=== PATIENT | female | born 1995 ===

== ENCOUNTER 2021-01-28 10:15 | Outpatient (RCR) | payer OTHER, SELFPAY ==
[2021-01-14 13:11] VITALS: BMI 17.3
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
--- NOTE | 2021-01-14 14:15 | PC.ADMIT ---
Patient is a 25 year old binary individual who goes by the name Yovani and uses they/them pronouns. Patient reports recent medication changes specifically the addition of Abilify triggered a hypomanic episode for 3 weeks. Per report patient described the hypomanic episode as having paranoid thoughts needing to check the doors to see if they were locked and fear that their home was burning. Patient reports they no longer have those symptoms however now feels they are way back down . Patient reported increase in anxiety with panic attacks with depression and passive SI. Patient presents with depressed mood and affect. Denied current SI or thoughts to harm self. Patient reports a hx of self harm however stated last time they self harmed was in 2019. Patient reports their appetite is adequate and they are eating well however patient is underweight for their height. Patient gave verbal permission to email them a copy of their safety plan. They have the crisis number if needed. Medications reconciled with patient and patient's pharmacy.
--- NOTE | 2021-01-18 13:51 | HO.PHPPROGNO ---
Subjective Subjective Date of Service: 01/18/21 Reason For Visit: depression Interim History: The patient reported no side effects but not improvement of her mood symptoms. She reported that she was going down from an hypomanic episode. She is going to see her regular prescriber. No safety issues. Medication Compliance: Yes Side effects from medications: No Attending Groups: Yes Review of Systems Review of Systems Yes all other systems are reviewed and are negative Mental Status Exam Mental Status Exam Patient Appearance: Well Grooomed Patient Orientation: Person, Place, Time and Situation Level of Consciousness: Awake and Appropriate Patient Behavior: Appropriate Mood Description: Calm Affect Description: Calm Patient Cognition Impaired: No Ability to Follow Directions: Good Speech Pattern: Clear Memory Description: Intact Hallucinations: None Delusions: Not Present Thought Process: Intact Thought Content: positive for Intact Judgement: Fair Diagnostics Vital Signs (24Hr): Body Mass Index 17.3 Assessment & Plan Assessment & Plan (1) Bipolar 2 disorder: Status: Acute Code(s): F31.81 - Bipolar II disorder Assessment and Plan: The patient tolerated fairly well the initial dose of Trileptal. She agreed to increase it up to 300 mg po bid Certification I certify that partial hospital treatment is medically necessary due to the symptoms and problems resulting from the patient's mental illness and the failure to treat the patient at the partial hospital level of care would likely result in the patient requiring inpatient psychiatric care which could not be prevented at a less intensive level of care. Greater than 50% of the session was spent on counseling and/or coordination of care Discharge Plan Discharge Attending provider: Nav Bazan Medications: New oxcarbazepine 300 mg tablet 300 mg PO BID Qty: 14 RF: 0 Continued guanfacine 1 mg Tablet 0.5 - 1 mg PO TID PRN (Reason: Anxiety) RF: 0 Telehealth Telehealth Location of provider rendering services: practice address Location of patient: address on file Patient Identification confirmed using: Name, : No Telehealth method: video Patient verbally consented to treatment: Yes Patient verbally consented to billing insurance company: Yes Patient informed of any privacy concerns related to visit: No Time spent with patient (mins): 15
--- NOTE | 2021-01-20 14:53 | PC.NURSE ---
I called and spoke to pt. They reported feeling good about work they are doing in [facility] overall, but said it's a bit overstimulating and triggering at times, as they are used to the structure of DBT. We discussed how to cope when feeling triggered in group, including taking a break (and informing the group of this) for a few minutes or voicing feelings and working through them in group. Pt is signed up for a [facility] DBT group, and is in the process of scheduling an orientation. They will discharge from [facility] tentatively on , 01/28.
--- NOTE | 2021-01-28 13:15 | PC.NURSE ---
Reviewed patient's discharge medications with patient. Patient medication education provided. Patient knows what she is taking and what the medication is for. Discharge medication list faxed to patients prescriber.
--- NOTE | 2021-01-28 13:28 | HO.PHPPROGNO ---
Subjective Subjective Date of Service: 01/28/21 Reason For Visit: depression Interim History: The patient has not noticed any changes on her mood, no side effects. She complaints of residual anxiety but no overt manic symptoms. This is the last visit, and she is aware that if the increase of Trileptal has not helped, she could go up to 600 mg po bid that it is the standard dose of Trileptal as a mood stabilzer. NO safety concerns. Medication Compliance: Yes Side effects from medications: No Attending Groups: Yes Review of Systems Review of Systems Yes all other systems are reviewed and are negative Mental Status Exam Mental Status Exam Patient Appearance: Well Grooomed Patient Orientation: Person, Place, Time and Situation Level of Consciousness: Awake and Appropriate Patient Behavior: Appropriate and Cooperative Mood Description: Calm Affect Description: Appropriate Patient Cognition Impaired: No Ability to Follow Directions: Good Speech Pattern: Clear Memory Description: Intact Hallucinations: None Delusions: Not Present Thought Process: Intact and Goal Oriented Thought Content: positive for Intact Judgement: Fair Diagnostics Vital Signs (24Hr): Body Mass Index 17.3 Assessment & Plan Assessment & Plan (1) Bipolar 2 disorder: Status: Acute Code(s): F31.81 - Bipolar II disorder Assessment and Plan: The darrell is a young female with bipolar type 2 that had an adverse reaction on Depakote. She was referred to [facility] to try a differnet mood stabiilzer. So far, she has been tolerating fairly well Trileptal. Plan: Increase Trileptal up to 450 mg po bid. F/U with regular prescriber Certification I certify that partial hospital treatment is medically necessary due to the symptoms and problems resulting from the patient's mental illness and the failure to treat the patient at the partial hospital level of care would likely result in the patient requiring inpatient psychiatric care which could not be prevented at a less intensive level of care. Greater than 50% of the session was spent on counseling and/or coordination of care Discharge Plan Discharge Attending provider: Nav Bazan Medications: New oxcarbazepine [Trileptal] 300 mg tablet 450 mg PO BID Qty: 21 RF: 1 Continued guanfacine 1 mg Tablet 0.5 - 1 mg PO TID PRN (Reason: Anxiety) RF: 0 Telehealth Telehealth Location of provider rendering services: practice address Location of patient: address on file Patient Identification confirmed using: Name, : Yes Telehealth method: video Patient verbally consented to treatment: Yes Patient verbally consented to billing insurance company: Yes Patient informed of any privacy concerns related to visit: No Time spent with patient (mins): 15
--- NOTE | 2021-01-28 14:46 | PC.NURSE ---
I called and left a message for Stew Agustin, pt's therapist at [facility]. I informed her of pt's successful discharge from [facility] today.
== END 2021-01-29 08:33 | disposition home or self-care (01) ==
LOC: HO.PHPA 10:15
PROVIDERS: Visit Provider Psychiatry & Neurology Psychiatry
DX: F31.81 Bipolar II disorder (principal); Z79.899 Other long term (current) drug therapy
CPT/HCPCS: 90791; 90853

== ENCOUNTER 2025-04-23 11:15 | Outpatient (RCR) | payer OTHER, SELFPAY ==
[2025-04-09 09:39] VITALS: BMI 20.9
[2025-04-09 09:40] VITALS: BP 81/61; PULSE 85; TEMP 37.2
--- NOTE | 2025-04-09 15:27 | PC.ADMIT ---
Patient is a 29 year old partnered individual who goes by the name of Yovani and uses they/them pronouns. Patient was referred to [facility] by their prescriber secondary to mood lability. Per Integrative Assessment patient has a recent history of being hospitalized at [facility] on a section 12. At that time patient called their partner expressing SI with a plan. Patient was taken to the hospital for a crisis evaluation and was subsequently hospitalized at [facility] from 03/13-03/18/25. Patient reports stresses at work. Feels they have not returned to their baseline functioning. Patient reports since d/c from the hospital they have been having issues with their insurance not covering Vraylar medication. She reports she recently had a brief manic episode lasting for two days. Patient stated they were able to get and started taking Vraylar medication two days ago. Patient reports they have attended PHP in the past and wanted to come back. Patient identified supports being their fiance Sherrie and Naomy who is Sherrie's mom. Patient lives with both of them. Patient is taking a leave of absence from work to work on their mental health. Patient is alert and oriented x4. They are calm and cooperative. Patient presented with depressed mood and affect. They denied SI, no HI. They were given a copy of their safety plan if needed. Patient reports they are able to reach out to their fiance if needed if feeling unsafe. Patient denied using any type of substance.
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
--- NOTE | 2025-04-22 21:29 | P.PNPSP_ITS ---
Subjective Subjective Date of Service: 04/22/25 Reason For Visit: bipolar,MARY CARMEN,OCD Interim History: Patient seen for follow-up, anticipating discharge at the end of program today.? Doing okay Denies any SI, none in the past couple of weeks...although there's still habitual thoughts of self harm but denies cating on these thoughts. Has a med provider through [facility], is currently on waitlist for a therapist. Reports no acute issues or concerns. Medication compliant, medications well- tolerated. Denies any adverse effects.? Mood is stable.? Denies any hopelessness or SI. Denies thoughts of harming self or others at this time. Denies any aggressive ideation or HI. Denies any par anoia or AH or VH. Sleep, appetite, energy stable. Medication Compliance: Yes Side effects from medications: No Attending Groups: Yes Review of Systems Acute medical concerns: No Mental Status Exam Mental Status Exam Narrative: Alert, oriented, in no acute distress. Calm, cooperative. Mood stable, affect appropriate. Speech normal. Thought process linear, coherent, more goal- directed. Thought content related to stressors, future-oriented, denies any helplessness, hopelessness or SI.? No aggressive ideation or HI. No paranoia or delusional content elicited. No evidence of psychosis. Insight and judgment fair-good. Diagnostics Vital Signs (24Hr): BMI result Body Mass Index 20.9 Assessment & Plan Assessment & Plan (1) Bipolar 2 disorder: Status: Acute Code(s): F31.81 - Bipolar II disorder (2) OCD (obsessive compulsive disorder): Status: Acute Code(s): F42.9 - Obsessive-compulsive disorder, unspecified (3) MARY CARMEN (generalized anxiety disorder): Status: Acute Code(s): F41.1 - Generalized anxiety disorder Plan Discharge from [facility] Continue regular medications? Refills sent to pharmacy Will defer further medication management to outpatient provider *Safety plan reviewed *Discharge diagnoses, treatment course, discharge plan have been reviewed with patient (including medication regime, medication management, potential side effects) as well as treatment rationale were also revisited *Discharge paperwork signed and given to patient, copy sent for scanning to chart Patient educated on: diagnosis and medication risk/benefits Informed Consent: understands Reason for contiued partial hosp. stay Substantial Risk for: stable for discharge Certification I certify that partial hospital treatment is medically necessary due to the symptoms and problems resulting from the patient's mental illness and the failure to treat the patient at the partial hospital level of care would likely result in the patient requiring inpatient psychiatric care which could not be prevented at a less intensive level of care. Total time managing care of this patient today __30__ minutes. Discharge Plan Discharge Attending provider: Sophia Marie Medications: Continued guanfacine 1 mg Tablet 0.5 - 1 mg PO DAILY PRN (Reason: Anxiety, Panic) Rx Instructions: Take 1/2 to 1 tab Daily PRN anxiety sertraline [Zoloft] 25 mg Tablet 25 mg PO DAILY Rx Instructions: Take 1.5 tabs daily in the morning. Vraylar 4.5 mg Capsule 4.5 mg PO DAILY Rx Instructions: Take daily with meal oxcarbazepine [Trileptal] 300 mg tablet 300 mg PO BID Patient Education: Bipolar Disorder (DC), Obsessive Compulsive Disorder (DC), Anxiety (ED) Print Language: Bruneian
== END 2025-04-23 23:59 | disposition home or self-care (01) ==
LOC: HO.PHPA 11:15
PROVIDERS: Visit Provider Psychiatry & Neurology Psychiatry
DX: F31.81 Bipolar II disorder (principal); F42.9 Obsessive-compulsive disorder, unspecified; F41.1 Generalized anxiety disorder; Z79.899 Other long term (current) drug therapy
CPT/HCPCS: 90791; 90853